=== PATIENT | female | born 1990 | race Caucasian/White ===

== ENCOUNTER 2019-10-08 06:44 | Outpatient (CLI) | payer BC ==
[2019-10-08 11:53] LABS: #Basophils 0.1 thou/uL (0.0-0.2); #Eosinphils 0.4 thou/uL (0.0-0.7); #Lymphocytes 2.4 thou/uL (1.20-3.40); #Monocytes 0.5 thou/uL (0.11-0.59); #Neutrophils 5.6 thou/uL (1.40-6.50); %Basophils 0.7 % (0.0-1.0); %Eosinophils 4.3 % (0.0-10.0); %Lymphocytes 26.5 % (21.0-51.0); %Monocytes 6.1 % (0.0-10.0); %Neutrophils 62.3 % (42.0-75.0); Hemoglobin 15.6 g/dL (12.0-16.0); Mean Corpuscular HGB CONC 34.5 g/dL (32.0-36.0); Mean Corpuscular Hemoglobin 33.1 pg (27.0-31.0); Platelet Count 273 thou/uL (130-400); RBC Distribution Width 11.6 % (11.5-14.5); Red Blood Cell (RBC) Count 4.72 mill/uL (4.20-5.40); White Blood Cell (WBC) Count 8.9 thou/uL (4.8-10.8)
[2019-10-08 12:05] LABS: BHCG - Serum Negative (NEGATIVE); Pregs Control Background? CLEAR/WHITE (CLR/WHITE); Pregs Control Bar Appear? YES (CONTROL BAR)
== END 2019-10-08 06:45 | disposition home or self-care (01) ==
LOC: LABBT 06:44
PROVIDERS: ATTEND Surgery
DX: Z01.812 Encounter for preprocedural laboratory examination (principal); N63.10 Unspecified lump in the right breast, unspecified quadrant
CPT/HCPCS: 84703; 85025

== ENCOUNTER 2019-10-10 06:04 | Day surgery (SDC) | payer BC ==
[2019-10-08 10:42] VITALS: BMI 19.5
[2019-10-10] MEDS ORDERED: Midazolam HCl 2 mg/2 ml Vial ONE (06:11)
[2019-10-10] MEDS ORDERED: Fentanyl 100 MCG/2 ML VIAL ONE (06:11)
[2019-10-10] MEDS ORDERED: Bupivacaine 0.25% HCL 30 ML VIAL ONE (06:50)
[2019-10-10] MEDS ORDERED: Lidocaine 1% w/Epinephrine 1:100K 20 ML VIAL ONE (06:50)
[2019-10-10] MEDS ORDERED: Propofol 500 MG/50 ML VIAL ONE (07:02)
[2019-10-10] MEDS ORDERED: Dexamethasone 20 MG/5 ML VIAL ONE (09:46)
[2019-10-10] MEDS ORDERED: Ondansetron PF 4 MG/2 ML Vial ONE (09:46)
[2019-10-10] MEDS ORDERED: PROPOFOL 200 MG/20 ML VIAL ONE (09:46)
--- NOTE | 2019-10-15 18:43 | PDOC.OP ---
Operative Note - Operative Note Operative Note: PROCEDURE: Right breast mass excisional biopsy SURGEON: Trina Floyd M.D. DATE: 10/10/2019 PREOPERATIVE DIAGNOSIS: Right breast mass POSTOPERATIVE DIAGNOSIS: Right breast mass HISTORY: Patient with a slowly enlarging right breast mass. This has benign characteristics on exam and ultrasound so excisional biopsy was selected. FINDINGS: Firm mass in right lateral breast PROCEDURE IN DETAIL: After informed consent was obtained the patient was taken to the operating where she was placed in supine position and anesthesia was administered. She was prepped and draped in standard sterile fashion and local anesthesia infused to the skin and subcutaneous tissues surrounding the mobile well-defined mass. A periareolar incision was made and dissection carried out toward the lateral breast mass which was grasped and dissected free circumferentially with some difficulty due to very dense surrounding breast tissue. The mass was completely excised with a small rim of normal surrounding breast tissue. The specimen was removed from the biopsy cavity and marked for orientation with a long lateral, short superior, and loop superficial suture. The wound was irrigated and hemostasis obtained using Bovie electrocautery. Additional local anesthesia was infused for postoperative pain control and the subcutaneous tissues were reapproximated with 3-0 Monocryl suture. Additional local anesthesia infused into the biopsy cavity and the skin was closed with a running 4-0 subcuticular Monocryl suture. Dermabond dressings were applied. Once this was dry a fluff compression dressing was applied and taped to the skin. The patient tolerated the procedure well. Estimated blood loss was minimal. There were no complications. Specimen is right lateral breast mass.
== END 2019-10-10 10:20 | disposition home or self-care (01) ==
LOC: SDC 06:04
PROVIDERS: ATTEND Surgery
PROC: 0HBT0ZZ Excision of Right Breast, Open Approach (ICD-10-PCS; principal; 2019-10-10)
DX: D24.1 Benign neoplasm of right breast (principal); F32.9 Major depressive disorder, single episode, unspecified; F41.9 Anxiety disorder, unspecified; Z87.891 Personal history of nicotine dependence; Z79.899 Other long term (current) drug therapy; Z88.0 Allergy status to penicillin
CPT/HCPCS: 88307; J1100; J2250; J2405; J2704; J3010; S0020